=== PATIENT | female | born 1995 | race Caucasian/White ===

== ENCOUNTER 2018-02-18 14:30 | Emergency (ER) | payer OTHER ==
[2018-02-18 14:43] VITALS: BP 137/93
== END 2018-02-18 16:21 | disposition home or self-care (01) ==
LOC: ED 14:30
DX: B34.9 Viral infection, unspecified (principal); R22.0 Localized swelling, mass and lump, head; J45.909 Unspecified asthma, uncomplicated; Z86.2 Personal history of diseases of the blood and blood-forming organs and certain disorders involving the immune mechanism

== ENCOUNTER 2018-12-22 19:29 | Emergency (ER) | payer OTHER ==
[~2018-12-22] VITALS: Ht 160 cm; Wt 69.9 kg
[2018-12-22 19:32] VITALS: Ht 160 cm; Wt 69.9 kg
[2018-12-22 20:19] VITALS: BP 130/81
== END 2018-12-22 20:19 | disposition home or self-care (01) ==
LOC: ED 19:29
DX: R21 Rash and other nonspecific skin eruption (principal); L29.9 Pruritus, unspecified; J45.909 Unspecified asthma, uncomplicated; Z86.2 Personal history of diseases of the blood and blood-forming organs and certain disorders involving the immune mechanism

== ENCOUNTER 2019-01-16 21:48 | Emergency (ER) | payer OTHER ==
[~2019-01-16] VITALS: Ht 160 cm; Wt 69.4 kg
[2019-01-16 22:15] VITALS: BP 118/83; Ht 160 cm; Wt 69.4 kg
== END 2019-01-16 23:06 | disposition home or self-care (01) ==
LOC: ED 21:48
DX: M79.621 Pain in right upper arm (principal); J45.909 Unspecified asthma, uncomplicated